=== PATIENT | male | born 1960 | race Caucasian/White ===

== ENCOUNTER 2022-03-14 16:52 | Observation (INO) | payer BC ==
[2022-03-14 17:31] VITALS: BMI 37.3
[2022-03-14] MEDS ORDERED: FLU VACC QS2022-23(6MOS UP)/PF 60 MCG/0.5 ML SYRINGE IM ONE (20:00)
[2022-03-14] MEDS ORDERED: Acetaminophen 325 MG TAB PO PRN (21:50)
[2022-03-14] MEDS ORDERED: Guaifenesin DM 100-10/5 ML UDCUP PO PRN (21:50)
[2022-03-14] MEDS ORDERED: HYDROcodone/Acetaminophen 5/325 mg Tablet PO PRN (21:50)
[2022-03-14] MEDS ORDERED: Bisacodyl 10 MG SUPP PR PRN (21:50)
[2022-03-14] MEDS ORDERED: Lorazepam 1 MG TAB PO PRN (21:52)
[2022-03-14] MEDS ORDERED: Morphine 2 MG/ML VIAL SLOW IVP PRN (21:58)
[2022-03-14] MEDS ORDERED: Metoprolol Tartrate 25 MG TAB PO SCH (22:00)
[2022-03-14 22:35] LABS: Magnesium 2.1 mg/dL (1.6-2.6)
[2022-03-14 22:42] LABS: Troponin I Less than 0.010 ng/mL (< 0.028)
[2022-03-15 05:30] LABS: #Basophils 0.1 10x3/uL (0.0-0.2); #Eosinphils 0.2 10x3/uL (0.0-0.5); #Monocytes 0.4 10x3/uL (0.0-1.1); #Neutrophils 3.4 10x3/uL (1.5-8.4); %Basophils 0.9 % (0.0-2.0); %Eosinophils 3.6 % (0.0-6.0); %Lymphocytes 23.1 % (18.0-47.0); %Monocytes 8.3 % (0.0-10.0); %Neutrophils 63.5 % (40.0-75.0); Hemoglobin 14.7 g/dL (13.5-17.5); Mean Corpuscular HGB CONC 33.3 g/dL (32.0-36.0); Mean Corpuscular Hemoglobin 30.4 pg (27.0-33.0); Mean Corpuscular Volume 91.1 fl (81.2-95.1); Mean Platelet Volume 8.9 fl (7.4-10.4); Platelet Count 188 10x3/uL (150-450); Red Blood Cell (RBC) Count 4.84 10x6/uL (4.32-5.72); White Blood Cell (WBC) Count 5.3 10x3/uL (3.5-10.5)
[2022-03-15 05:38] LABS: Anion Gap 14 mmol/L (10-20); BUN (Urea Nitrogen) 18 mg/dL (8.4-25.7); Calc. Creatinine Clearance 154 mL/min (70-130); Carbon Dioxide 24 mmol/L (22-29); Chloride 107 mmol/L (98-107); Potassium 4.5 mmol/L (3.5-5.1); Sodium 140 mmol/L (136-145)
[2022-03-15 05:39] LABS: ALT (SGPT) 29 U/L (8-55); AST (SGOT) 19 U/L (5-34); Albumin 3.8 g/dL (3.5-5.0); Alkaline Phosphatase 71 U/L (40-110); Bilirubin, Total 0.5 mg/dL (0.2-1.2); Calcium 8.6 mg/dL (7.8-10.44); Cardiac Risk 5.2 (Less than 4.5); Cholesterol 181 mg/dl (< 200 Desired); Estimated GFR 99; Globulin 2.2 g/dL (2.4-3.5); Glucose 105 mg/dL (70-105); HDL Cholesterol 35 mg/dL (>60 Neg Risk); LDL Cholesterol, Calculated 114 mg/dL; Triglycerides 160 mg/dL (Less than 150)
[2022-03-15 08:38] VITALS: BP 144/80; TEMP 98.2
[2022-03-15] MEDS ORDERED: rOPINIRole HCl 2 MG TAB PO SCH (09:00)
[2022-03-15] MEDS ORDERED: Famotidine 20 MG TAB PO SCH (09:00)
[2022-03-15] MEDS ORDERED: Enoxaparin Sodium 40 MG/0.4 ML SYRINGE SC SCH (09:00)
[2022-03-15] MEDS ORDERED: Metoprolol Tartrate 25 MG TAB PO SCH (09:00)
== END 2022-03-15 11:24 | disposition home or self-care (01) ==
LOC: CSHTELE 16:52
PROVIDERS: ADMIT Family Medicine; ATTEND Family Medicine
DX: I49.3 Ventricular premature depolarization (principal); R07.9 Chest pain, unspecified; F41.9 Anxiety disorder, unspecified; G25.81 Restless legs syndrome; F51.04 Psychophysiologic insomnia; Z87.442 Personal history of urinary calculi; Z79.899 Other long term (current) drug therapy; Z88.8 Allergy status to other drugs, medicaments and biological substances; Z90.49 Acquired absence of other specified parts of digestive tract; Z98.890 Other specified postprocedural states
CPT/HCPCS: 36415; 80053; 80061; 83735; 84443; 85025; 93005; 93010; 94760; 96372; 96374; G0378; J1650; J2270